=== PATIENT | female | born 2005 | race Caucasian/White ===

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

== ENCOUNTER → 2024-10-26 | Outpatient (CLI) | payer BC ==
[2024-10-26 20:20] LABS: ALT 20 U/L (8-44); AST 18 U/L (13-35); Albumin 4.2 g/dL (3.8-4.9); Albumin/Globulin Ratio 1.75 Ratio (1.60-3.17); Alkaline Phosphatase 66 U/L (41-126); BUN/Creat Ratio 11.67 Ratio (12.00-20.00); Calcium 9.2 mg/dL (8.7-10.3); Chloride 106 mmol/L (96-109); Globulin 2.4 g/dL (1.6-3.3); Glucose 97 mg/dL (70-110); Magnesium 1.8 mg/dL (1.5-2.4); Potassium 3.5 mmol/L (3.5-5.5); Sodium 139 mmol/L (135-145); Total Bilirubin 0.4 mg/dL (0.3-1.2); Total Protein 6.6 g/dL (6.2-8.2)
[2024-10-26 20:37] LABS: Basophils # (A) 0.01 X 10*3/uL (0.00-0.10); Basophils % (A) 0.2 %; Eosinophils # (A) 0.07 X 10*3/uL (0.04-0.35); Eosinophils % (A) 1.2 %; HCT 42.1 % (37.2-46.3); Lymphocytes # (A) 1.67 X 10*3/uL (0.90-5.00); Lymphocytes % (A) 27.6 %; MCH 29.4 pg (27.0-32.0); MCHC 33.3 g/dL (32.0-37.0); MCV 88.4 FL (80.0-97.0); Monocytes # (A) 0.57 X 10*3/uL (0.20-1.00); Monocytes % (A) 9.4 %; NRBC Per 100 WBC 0 X 10*3/uL (0.00-0.01); Neutrophils # (A) 3.71 X 10*3/uL (1.80-7.70); Neutrophils % (A) 61.3 %; Platelet Count 216 X 10*3/uL (140-440); RBC 4.76 X 10*6/uL (4.10-5.20); RDW 12.2 % (11.5-14.5); WBC 6.05 X 10*3/uL (4.50-10.00)
[2024-10-26 20:43] LABS: Appearance,Urine Clear (Clear); Bilirubin,Urine Negative (Negative); Blood,Urine Moderate (Negative); Color,Urine Yellow (Yellow); Ketones,Urine Negative (Negative); Nitrite,Urine Negative (Negative); Specific Gravity,Urine 1.013 (1.001-1.030); Urobilinogen,Urine 0.2 E.U./DL
[2024-10-26 21:18] LABS: Bacteria,Urine 3+ (None Seen)
[2024-10-26 21:31] LABS: Microalbumin Creatinine Ratio <18 mg/g Cr (0-30); Urine Creatinine 68.5 mg/dL (28.0-217.0)
== END | disposition home or self-care (01) ==
LOC: LABWHC1 12:30
PROVIDERS: ATTEND Internal Medicine
DX: N28.1 Cyst of kidney, acquired (principal)
CPT/HCPCS: 36415; 80053; 81001; 82043; 82570; 83735; 84100; 85025